=== PATIENT | male | born 1930 | race Caucasian/White ===

== ENCOUNTER 2017-12-12 23:06 | Observation (INO) ==
--- NOTE | 2017-12-12 23:35 | ED ---
HPI General Chief complaint: Weakness Stated complaint: weakness/evac Time Seen by Provider: 12/12/17 23:11 Source: patient and EMS Mode of arrival: EMS History of Present Illness HPI Narrative: Patient is an 87-year-old male with history of hyperlipidemia, macular degeneration, ataxia, weakness, atrial fibrillation, dm, CKD, htn who presents to the ER with complaints of dizziness. Patient reports that he was watching TV today and all of a sudden felt dizzy and his eyes. Patient reports that he is partially blind but "my eyes feel dizzy." Patient reports that he normally ambulates with a walker as he has history of ataxia, patient reports that he was unable to ambulate due to this dizziness. Patient reports that he tried to get to a phone but could not reach a phone. Patient reports that he crawled on the floor to get to the door and screamed for help as he lives in assisted living facility. Patient reports that in addition to his dizziness, he feels weak in his legs. Reports that he was not able to ambulate with assist after this incident. He does take coumadin for atrial fibrillation Related Data Allergies Allergy/AdvReac Type Severity Reaction Status Date / Time No Known Allergies Allergy Verified 12/12/17 23:15 Review of Systems Except as stated in HPI: all other systems reviewed are negative [facility] Medical History Medical History Glaucoma (Acute) Hyperlipidemia (Acute) Macular degeneration (Acute) Unsteady gait (Acute) Weakness (Acute) Afib (Acute) CKD (chronic kidney disease) (Acute) Diabetes (Acute) Hypertension (Acute) Surgical History Surgical History No history of previous surgery (Acute) Social History Social History Substance History: No History of Abuse Second Hand Smoke Exposure: No Smoking Status: Never smoker How Often Do You Have a Drink Containing Alcohol: 4 or more times a week Recent Travel in [facility] within the Last 8 Weeks: No Recent Out of Country Travel within the Last 8 Weeks: No Exam Narrative Exam Narrative: GENERAL: Mild distress SKIN: Focused skin assessment warm/dry. HEAD: Atraumatic. Normocephalic. EYES: No injection or drainage. ENT: No nasal bleeding or discharge. Mucous membranes pink and moist. NECK: Trachea midline. No JVD. CARDIOVASCULAR: Irregular rate and rhythm. No murmur appreciated. RESPIRATORY: No accessory muscle use. Clear to auscultation. Breath sounds equal bilaterally. GASTROINTESTINAL: Abdomen soft, non-tender, nondistended. Hepatic and splenic margins not palpable. MUSCULOSKELETAL: No obvious deformities. No clubbing. No cyanosis. +3 pedal edema b/l NEUROLOGICAL: Awake and alert. No obvious cranial nerve deficits. Motor grossly within normal limits. Normal speech. PSYCHIATRIC: Appropriate mood and affect; insight and judgment normal. Course Initial Documented Vital Signs Temperature 97.7 F 12/12/17 23:08 Pulse Rate 71 12/12/17 23:08 Respiratory Rate 18 12/12/17 23:08 Blood Pressure 140/75 12/12/17 23:08 Pulse Oximetry 96 12/12/17 23:08 Last Documented Vital Signs Temperature 97.7 F 12/12/17 23:08 Pulse Rate 75 12/13/17 00:05 Respiratory Rate 18 12/12/17 23:08 Blood Pressure 140/75 12/12/17 23:08 Pulse Oximetry 96 12/12/17 23:08 Medical Decision Making MDM Narrative Medical decision making narrative: During the course of the patients emergency department visit, the patients history, examination, and differential diagnosis were reviewed with the patient. The patient was placed on a security monitor with oximetry and frequent blood pressure monitoring. The patient had an IV access obtained and blood work sent for analysis. The patients laboratory studies were reviewed and remarkable for trop of 0.08, creatine is at baseline Patient will be admitted for NSTEMI and generalized weakness case reviewed with Dr. Lo who accepts pt to service Differential Diagnosis Differential Diagnosis: acs, arrythmia, uti, electrolyte abnormality, cva, tia, ich Lab Data Lab results reviewed: Yes I reviewed the patient's lab results. Result diagrams: 12/12/17 23:35 12/12/17 23:35 Lab Results 12/12/17 12/12/17 12/12/17 Range/Units 23:11 23:35 23:35 CBC w Diff Auto diff final WBC 8.5 (4.0-11.0) th/mm3 RBC 3.05 L (4.50-5.90) mil/mm3 Hgb 11.4 L (13.0-17.0) gm/dL Hct 32.4 L (39.0-51.0) % MCV 106.1 H (80.0-100.0) fL MCH 37.4 H (27.0-34.0) pg MCHC 35.3 (32.0-36.0) % RDW 14.0 (11.6-17.2) % Plt Count 109 L (150-450) th/mm3 MPV 7.4 (7.0-11.0) fL Neut % (Auto) 74.1 H (16.0-70.0) % Lymph % (Auto) 14.1 (9.0-44.0) % [place] % (Auto) 7.7 (0.0-8.0) % Eos % (Auto) 3.7 (0.0-4.0) % Baso % (Auto) 0.4 (0.0-2.0) % Neut # (Auto) 6.3 (1.8-7.7) th/mm3 Lymph # (Auto) 1.2 (1.0-4.8) th/mm3 [place] # (Auto) 0.7 (0.0-0.9) th/mm3 Eos # (Auto) 0.3 (0.0-0.4) th/mm3 Baso # (Auto) 0.0 (0.0-0.2) th/mm3 WBC Differential . Differential Comment . PT (9.8-11.6) sec INR Ratio APTT (24.3-30.1) sec Sodium 136 (136-145) meq/L Potassium 3.0 L (3.5-5.1) meq/L Chloride 101 (98-107) meq/L Carbon Dioxide 28.3 (21.0-32.0) meq/L Anion Gap 7 (5-15) meq/L BUN 52 H (7-18) mg/dL Creatinine 2.30 H (0.60-1.30) mg/dL Estimated GFR 27 L (>89) mL/min POC Glucose 127 H (68-110) mg/dl Random Glucose 133 H (74-106) mg/dL Calcium 8.9 (8.5-10.1) mg/dL Total Bilirubin 0.4 (0.2-1.0) mg/dL AST 7 L (15-37) U/L ALT 16 (12-78) U/L Alkaline Phosphatase 69 (45-117) U/L Total Creatine Kinase (39-308) U/L Troponin I (0.02-0.05) ng/mL Total Protein 7.7 (6.4-8.2) g/dL Albumin 3.3 L (3.4-5.0) g/dL Urine Color (Yellw/Straw) Urine Clarity (Clear) Urine pH (5.0-8.5) Ur Specific [place] (1.002-1.035) Urine Protein (Neg-Trace) mg/dL Urine Glucose (UA) (Negative) mg/dL Urine Ketones (Negative) mg/dL Urine Occult Blood (Negative) Urine Nitrate (Negative) Urine Bilirubin (Negative) Urine Urobilinogen (Less than 2) mg/dL Ur Leukocyte Esterase (Negative) Urine WBC (0-5) /hpf Urine WBC Clumps (None) Ur Squamous Epith Cells (0-5) /hpf Micro UA Comment Urine Culture Comments 12/12/17 12/12/17 12/12/17 Range/Units 23:35 23:35 23:55 CBC w Diff WBC (4.0-11.0) th/mm3 RBC (4.50-5.90) mil/mm3 Hgb (13.0-17.0) gm/dL Hct (39.0-51.0) % MCV (80.0-100.0) fL MCH (27.0-34.0) pg MCHC (32.0-36.0) % RDW (11.6-17.2) % Plt Count (150-450) th/mm3 MPV (7.0-11.0) fL Neut % (Auto) (16.0-70.0) % Lymph % (Auto) (9.0-44.0) % [place] % (Auto) (0.0-8.0) % Eos % (Auto) (0.0-4.0) % Baso % (Auto) (0.0-2.0) % Neut # (Auto) (1.8-7.7) th/mm3 Lymph # (Auto) (1.0-4.8) th/mm3 [place] # (Auto) (0.0-0.9) th/mm3 Eos # (Auto) (0.0-0.4) th/mm3 Baso # (Auto) (0.0-0.2) th/mm3 WBC Differential Differential Comment PT 22.2 H (9.8-11.6) sec INR 2.2 Ratio APTT 37.8 H (24.3-30.1) sec Sodium (136-145) meq/L Potassium (3.5-5.1) meq/L Chloride (98-107) meq/L Carbon Dioxide (21.0-32.0) meq/L Anion Gap (5-15) meq/L BUN (7-18) mg/dL Creatinine (0.60-1.30) mg/dL Estimated GFR (>89) mL/min POC Glucose (68-110) mg/dl Random Glucose (74-106) mg/dL Calcium (8.5-10.1) mg/dL Total Bilirubin (0.2-1.0) mg/dL AST (15-37) U/L ALT (12-78) U/L Alkaline Phosphatase (45-117) U/L Total Creatine Kinase 69 (39-308) U/L Troponin I 0.08 H (0.02-0.05) ng/mL Total Protein (6.4-8.2) g/dL Albumin (3.4-5.0) g/dL Urine Color Yellow (Yellw/Straw) Urine Clarity Clear (Clear) Urine pH 5.5 (5.0-8.5) Ur Specific [place] 1.010 (1.002-1.035) Urine Protein Negative (Neg-Trace) mg/dL Urine Glucose (UA) Negative (Negative) mg/dL Urine Ketones Negative (Negative) mg/dL Urine Occult Blood Negative (Negative) Urine Nitrate Negative (Negative) Urine Bilirubin Negative (Negative) Urine Urobilinogen 0.2 (Less than 2) mg/dL Ur Leukocyte Esterase Trace H (Negative) Urine WBC 5-8 H (0-5) /hpf Urine WBC Clumps Few H (None) Ur Squamous Epith Cells 0-5 (0-5) /hpf Micro UA Comment Culture indicated Urine Culture Comments Culture indicated Imaging Data Attestation: I personally reviewed and interpreted this imaging study as follows : Radiologist's impression: Head CT 12/12/17 23:11 CONCLUSION: 1. No acute findings in the brain. Age-appropriate atrophy. Chest X-Ray 12/12/17 23:12 CONCLUSION: Subsegmental basilar airspace disease. No effusion or pneumothorax. ECG Data EKG Prior to Arrival: No Attestation: I personally reviewed and interpreted this ECG as follows: Interpretation: afib at 60bpm, qt/qtc: 407/407 Discharge Plan Discharge Disposition Patient Disposition: 30 Still Patient Physicians Team ED Provider: Niesha Chaves Primary Care Provider: Edwin Scott Status ED Status: With Doctor
--- NOTE | 2017-12-12 23:42 | CT ---
EXAM DATE: 12/12/2017 11:38 PM EDT AGE/SEX: 87 years / Male INDICATIONS: Weakness. Unsteady gait. CLINICAL DATA: This is the patient's initial encounter. Patient reports that signs and symptoms have been present for 1 day and indicates a pain score of 0/10. MEDICAL/SURGICAL HISTORY: Diabetes. Hypertension. None. RADIATION DOSE: 59.45 CTDI (mGy) COMPARISON: No prior exams available for comparison. TECHNIQUE: CT of the head without contrast. Using automated exposure control and adjustment of the mA and/or kV according to patient size, radiation dose was kept as low as reasonably achievable to ob tain optimal diagnostic quality images. DICOM format image data is available electronically for revi ew and comparison. FINDINGS: Cerebrum: The ventricles, sulci, and basal cisterns are mildly prominent, characteristic of age-appr opriate atrophy.. No evidence of midline shift, mass lesion, hemorrhage or acute infarction. No ext raaxial fluid collections are seen. Posterior Fossa: The cerebellum and brainstem are intact. The 4th ventricle is midline. The cerebe llopontine angle is unremarkable. Extracranial: The visualized portion of the orbits is intact. Skull: The calvaria is intact. No evidence of skull fracture. CONCLUSION: 1. No acute findings in the brain. Age-appropriate atrophy. Electronically signed by: Jonathan Arrieta MD 12/12/2017 11:40 PM EDT
[2017-12-12 23:49] LABS: Baso % (Auto) 0.4 % (0.0-2.0); Eos # (Auto) 0.3 th/mm3 (0.0-0.4); Eos % (Auto) 3.7 % (0.0-4.0); Hematocrit 32.4 % (39.0-51.0); Hemoglobin 11.4 gm/dL (13.0-17.0); Lymph # (Auto) 1.2 th/mm3 (1.0-4.8); Lymph % (Auto) 14.1 % (9.0-44.0); Mean Corpuscular HGB Conc 35.3 % (32.0-36.0); Mean Corpuscular Hemoglobin 37.4 pg (27.0-34.0); Mean Corpuscular Volume 106.1 fL (80.0-100.0); Mean Platelet Volume 7.4 fL (7.0-11.0); Mono # (Auto) 0.7 th/mm3 (0.0-0.9); Mono % (Auto) 7.7 % (0.0-8.0); Neut # (Auto) 6.3 th/mm3 (1.8-7.7); Neut % (Auto) 74.1 % (16.0-70.0); Platelet Count 109 th/mm3 (150-450); Red Blood Count 3.05 mil/mm3 (4.50-5.90); White Blood Count 8.5 th/mm3 (4.0-11.0)
[2017-12-13 00:03] LABS: Bilirubin,Urine Negative (Negative); Clarity,Urine Clear (Clear); Color,Urine Yellow (Yellw/Straw); Glucose,Urine (UA) Negative (Negative); Leukocyte Esterase,Urine Trace (Negative); Nitrite,Urine Negative (Negative); PH,Urine 5.5 (5.0-8.5); Urobilinogen,Urine 0.2 mg/dL (Less than 2)
--- NOTE | 2017-12-13 00:08 | XR ---
EXAM DATE: 12/12/2017 11:46 PM EDT AGE/SEX: 87 years / Male INDICATIONS: . Shortness of breath. CLINICAL DATA: This is the patient's initial encounter. Patient reports that signs and symptoms have been present for 1 day and indicates a pain score of 0/10. MEDICAL/SURGICAL HISTORY: . Diabetes. Hypertension. None. COMPARISON: . FINDINGS: Heart size is enlarged. Subsegmental basilar airspace disease. No significant effusion. Tortuous aort a. No pneumothorax. CONCLUSION: Subsegmental basilar airspace disease. No effusion or pneumothorax. Electronically signed by: Bryce Sibley MD 12/13/2017 12:06 AM EDT
[2017-12-13 00:10] LABS: Chloride 101 meq/L (98-107); Sodium 136 meq/L (136-145)
[2017-12-13 00:13] LABS: Squamous Epithelial Cell,Urine 0-5 /hpf (0-5)
[2017-12-13 00:13] LABS: Calcium 8.9 mg/dL (8.5-10.1)
[2017-12-13 00:14] LABS: Albumin 3.3 g/dL (3.4-5.0); Anion Gap 7 meq/L (5-15); Blood Urea Nitrogen 52 mg/dL (7-18); Carbon Dioxide 28.3 meq/L (21.0-32.0); Glucose,Random 133 mg/dL (74-106)
[2017-12-13 00:17] LABS: Alanine Aminotransferase 16 U/L (12-78); Aspartate Aminotransferase 7 U/L (15-37); Glomerular Filtration Rate 27 mL/min (>89)
[2017-12-13 00:19] LABS: Total Protein 7.7 g/dL (6.4-8.2)
[2017-12-13 00:20] LABS: Alkaline Phosphatase 69 U/L (45-117); Troponin I 0.08 ng/mL (0.02-0.05)
[2017-12-13 01:03] LABS: Activated Partial Thrombo Time 37.8 sec (24.3-30.1); INR 2.2 Ratio; Prothrombin Time 22.2 sec (9.8-11.6)
[2017-12-13] MEDS ORDERED: Temazepam 15 MG Capsule PO PRN (01:43)
[2017-12-13] MEDS ORDERED: Dextrose 50% in Water 50 ML Vial IV.PUSH PRN (01:46)
[2017-12-13] MEDS: Heparin - SQ 10,000 UNITS/ML Vial SQ SCH ×3 (02:48→16:59)
[2017-12-13] MEDS ORDERED: Ranolazine 500 MG 12HR ER Tablet PO SCH (03:45)
[2017-12-13] MEDS: Isosorbide Mononitrate 60 MG ER 24HR Tablet (Imdur) PO SCH (06:51)
[2017-12-13 08:28] LABS: Potassium 3.4 meq/L (3.5-5.1)
[2017-12-13 08:30] LABS: Calcium 8.6 mg/dL (8.5-10.1)
[2017-12-13 08:31] LABS: Carbon Dioxide 30.2 meq/L (21.0-32.0)
[2017-12-13] MEDS: hydroCHLOROthiazide 25 MG Tablet PO SCH (09:27)
[2017-12-13] MEDS: Ranolazine 500 MG 12HR ER Tablet PO SCH ×2 (09:28→21:17)
[2017-12-13] MEDS: Furosemide 40 MG Tablet PO SCH (09:28)
[2017-12-13] MEDS: Metoprolol Tartrate 25 MG Tablet PO SCH ×2 (09:29→21:17)
[2017-12-13] MEDS: Lisinopril 10 MG Tablet PO SCH ×2 (09:29→21:17)
[2017-12-13] MEDS: Finasteride 5 MG Tablet PO SCH (09:29)
[2017-12-13] MEDS: Allopurinol 100 MG Tablet PO SCH (09:29)
[2017-12-13] MEDS: Insulin NovoLOG Aspart Correctional Sugar Inj SQ SCH ×4 (09:35→21:18)
[2017-12-13] MEDS: Brimonidine 0.15% Opth Drops 5 ML Bottle EACH EYE SCH ×3 (10:41→17:00)
--- NOTE | 2017-12-13 10:41 | MR ---
EXAM DATE: 12/13/2017 10:01 AM EDT AGE/SEX: 87 years / Male INDICATIONS: Dizziness. Weakness in bilateral extremities. CLINICAL DATA: This is the patient's initial encounter. Patient reports that signs and symptoms have been present for 1 day and indicates a pain score of 0/10. MEDICAL/SURGICAL HISTORY: Hypertension. None. COMPARISON: [facility], CT HEAD W/O CONTRAST, 12/12/2017. . TECHNIQUE: Multiplanar, multisequence examination of the brain was performed without contrast. FINDINGS: The CSF spaces are enlarged indicating mild atrophy and age-related volume loss. Scattered T2 hyperintense changes are seen throughout the cerebral white matter predominantly in the periventricular and deep white matter tracts. Focal areas of macrocystic degeneration are identified in several of these hyperintense lesions. There is no evidence of restricted diffusion involving the cerebral cortex or white matter. Brainstem and cerebellum are unremarkable. There is no evidence of mass effect or edema. CONCLUSION: 1. 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 2. Generalized volume loss consistent with an aging brain atrophy. 3. No evidence of acute infarct, hemorrhage, mass or edema. Electronically signed by: Chadd Gan MD 12/13/2017 10:40 AM EDT
[2017-12-13 12:46] LABS: Chol/HDL Ratio 2.33 Ratio; HDL Cholesterol 48.3 mg/dL (40.0-60.0)
--- NOTE | 2017-12-13 14:10 | P.HP ---
History of Present Illness Primary Care Physician: Edwin Scott MD History of Present Illness: 87-year-old male with history of A. fib, DVT presents to the ER following an acute onset of dizziness and weakness. He lives in an [place] where, at 10:45 PM last night, he became acutely weak and dizzy and had to crawl on his hands and knees to the door which he opened and called for help. He denies any chest pain. He is uncertain why he felt this way. Currently he says he feels better but has not tested himself on his feet again. He denies any dizziness lying in bed. His history is somewhat broken, he cannot remember if he has atrial fibrillation though it is in his history. This may indicate some level of dementia. Review of Systems Constitutional: Reports fatigue, Reports weakness, Denies anorexia, Denies chills, Denies daytime sleepiness, Denies malaise, Denies night sweats, Denies weight gain, Denies weight loss Eyes: Denies blind spots, Denies blurry vision, Denies change in vision, Denies double vision, Denies discharge Ears, Nose, Mouth, and Throat: Reports dizziness, Denies change in voice, Denies hearing loss, Denies nosebleed, Denies nasal discharge Cardiovascular: Denies chest pain, Denies fainting, Denies fast heart rate, Denies generalized swelling, Denies irregular heart rhythm Respiratory: Denies change in phlegm color, Denies chest congestion, Denies cough, Denies pain on inspiration Gastrointestinal: Denies abdominal pain, Denies black, tarry stools, Denies bloating, Denies bright, red blood in stools, Denies change in bowel habits Musculoskeletal: Denies abnormal walking, Denies back pain, Denies body aches Neurologic: Reports dizziness, Reports unsteadiness, Reports weakness, Denies abnormal hearing, Denies abnormal movements, Denies abnormal speech, Denies abnormal walking, Denies behavioral changes, Denies fainting, Denies frequent falls, Denies headache(s), Denies localized weakness, Denies numbness Psychiatric: Reports memory loss PMFSH - History History Provided By: Patient - Medical History Medical History: Medical History (Last Reviewed 12/13/17 @ 09:42 by Niesha Barrett) Glaucoma Hyperlipidemia Macular degeneration Unsteady gait Weakness Afib CKD (chronic kidney disease) Diabetes Hypertension - Surgical History Surgical History: Surgical History (Last Updated 12/13/17 @ 00:08 by Vida Bella RN) No history of previous surgery - Tobacco History Second Hand Smoke Exposure: No Smoking Status: Never smoker - Alcohol History How Often Do You Have a Drink Containing Alcohol: 4 or more times a week - Substance Use History Substance History: No History of Abuse - Travel History Recent Travel in the [place] Within the Last 8 Weeks: No Recent Travel Out of the Country Within the Last 8 Weeks: No - Immunization History Tetanus Immunization: >5 Years Hx Influenza Vaccine This Season: Yes Medications and Allergies Active Medications: Active Medications Allopurinol (Zyloprim) 300 mg PO DAILY [facility] Last Admin: 12/13/17 09:29 Dose: 300 mg Aspirin (Aspirin Chew) 81 mg PO DAILY [facility] Last Admin: 12/13/17 09:29 Dose: 81 mg Brimonidine Tartrate (Alphagan P 0.15% Opth Drops) 1 drops EACH EYE TID [facility] Last Admin: 12/13/17 10:41 Dose: Not Given Dextrose (D50w Vial) 50 ml IV.PUSH UNSCH PRN PRN Reason: PER HYPOGLYCEMIA PROTOCOL Finasteride (Proscar) 5 mg PO DAILY [facility] Last Admin: 12/13/17 09:29 Dose: 5 mg Furosemide (Lasix) 40 mg PO DAILY [facility] Last Admin: 12/13/17 09:28 Dose: 40 mg Glucagon (Glucagon Inj) 1 mg OTHER PRN PRN PRN Reason: for Hypoglycemia Protocol Heparin Sodium (Porcine) (Heparin Inj) 5,000 units SQ Q8H [facility] Last Admin: 12/13/17 11:29 Dose: Not Given Hydrochlorothiazide (Hydrodiuril) 25 mg PO DAILY [facility] Last Admin: 12/13/17 09:27 Dose: 25 mg Ceftriaxone Sodium 1,000 mg/ (Sodium Chloride) 100 mls @ 200 mls/hr IV.SIG Q24H [facility] Insulin Aspart (Novolog Insulin Correctional Sugar Inj) 0 unit SQ ACHS [facility]; Protocol Last Admin: 12/13/17 11:26 Dose: Not Given Isosorbide Mononitrate (Imdur) 120 mg PO DAILY@0700 [facility] Last Admin: 12/13/17 06:51 Dose: 120 mg Lisinopril (Prinivil) 10 mg PO BID [facility] Last Admin: 07/19/18 09:29 Dose: 10 mg Metoprolol Tartrate (Lopressor) 75 mg PO BID [facility] Last Admin: 12/13/17 09:29 Dose: 75 mg Ondansetron HCl (Zofran Inj) 4 mg IV.PUSH Q6H PRN PRN Reason: NAUSEA OR VOMITING Potassium Chloride (K-Dur) 40 meq PO BID [facility] Last Admin: 12/13/17 09:28 Dose: 40 meq Pravastatin Sodium (Pravachol) 80 mg PO QPM [facility] Ranolazine (Ranexa) 500 mg PO BID [facility] Last Admin: 12/13/17 09:28 Dose: 500 mg Sodium Chloride (Ns Flush) 2 ml IV.FLUSH PRN PRN PRN Reason: FLUSH AFTER USING IV ACCESS Tamsulosin HCl (Flomax) 0.8 mg PO DAILY [facility] Last Admin: 12/13/17 09:28 Dose: 0.8 mg Temazepam (Restoril) 15 mg PO HS PRN PRN Reason: INSOMNIA Warfarin Sodium (Coumadin) 2 mg PO Mo@1600 [facility] Warfarin Sodium (Coumadin) 1 mg PO SuTuWe@1600 [facility] Warfarin Sodium (Coumadin) 1 mg PO ThFrSa@1600 [facility] Allergies Allergy/AdvReac Type Severity Reaction Status Date / Time No Known Allergies Allergy Verified 12/12/17 23:15 Home Medications Medication Instructions Recorded Confirmed Type allopurinol 300 mg PO DAILY 12/13/17 12/13/17 History aspirin 81 mg PO DAILY 12/13/17 12/13/17 History brimonidine [Alphagan P] 1 drp OPHTHALMIC (EYE) TID 12/13/17 12/13/17 History docusate sodium [Colace] 100 mg PO BID 12/13/17 12/13/17 History dorzolamide-timolol [Cosopt] 1 drp OPHTHALMIC (EYE) Q12H 12/13/17 12/13/17 History finasteride 5 mg PO DAILY 12/13/17 12/13/17 History furosemide [Lasix] 40 mg PO DAILY 12/13/17 12/13/17 History hydrochlorothiazide 25 mg PO QAM 12/13/17 12/13/17 History isosorbide mononitrate 120 mg PO DAILY 12/13/17 12/13/17 History lisinopril 10 mg PO BID 12/13/17 12/13/17 History metoprolol tartrate 75 mg PO BID 12/13/17 12/13/17 History potassium chloride 40 meq PO BID 12/13/17 12/13/17 History ranolazine [Ranexa] 500 mg PO Q12H 12/13/17 12/13/17 History simvastatin 40 mg PO QPM 12/13/17 12/13/17 History tamsulosin 0.8 mg PO DAILY 12/13/17 12/13/17 History warfarin See Label Instructions .ROUTE 12/13/17 12/13/17 History .COMPLEX Exam Vital signs: Vital Signs 12/12/17 23:08 12/13/17 00:05 12/13/17 02:56 Temperature 97.7 F Pulse Rate 71 75 79 Respiratory Rate 18 18 Blood Pressure 140/75 138/65 Pulse Oximetry 96 95 12/13/17 02:57 12/13/17 03:14 12/13/17 06:44 Temperature 97.8 F Pulse Rate 74 Respiratory Rate 18 Blood Pressure 164/81 H Pulse Oximetry 95 98 96 12/13/17 08:29 12/13/17 11:00 Temperature 97.2 F L 96.5 F L Pulse Rate 77 71 Respiratory Rate 20 20 Blood Pressure 175/91 H 135/83 Pulse Oximetry 99 95 Intake & Output 12/12/17 12/13/17 12/13/17 18:59 06:59 18:59 Intake Total 100 / 100 Output Total 400 / 400 Balance -300 / -300 Weight 85.5 kg Intake: IV 100 / 100 Rocephin Inj 1,000 MG In NS Inj 100 / 100 100 ML @ 200 mls/hr IV.SIG ONCE ONE Rx#:[id number] Output: Urine 400 / 400 Narrative: GENERAL: Calm, well-nourished SKIN: Warm and dry. HEAD: Atraumatic. Normocephalic. EYES: Pupils equal and round. No scleral icterus. No injection or drainage. ENT: No nasal bleeding or discharge. Mucous membranes pink and moist. NECK: Trachea midline. No JVD. CARDIOVASCULAR: Irregularly irregular, rate controlled, no murmurs RESPIRATORY: No accessory muscle use. Clear to auscultation. Breath sounds equal bilaterally. GASTROINTESTINAL: Abdomen soft, non-tender, nondistended. Hepatic and splenic margins not palpable. MUSCULOSKELETAL: Extremities without clubbing, cyanosis, or edema. No obvious deformities. Negative Homans sign NEUROLOGICAL: Awake and alert. No obvious cranial nerve deficits. Motor grossly within normal limits. Five out of 5 muscle strength in the arms and legs. Normal speech. PSYCHIATRIC: Appropriate mood and affect; insight and judgment normal. Results - Labs CBC & Chem 7: 12/12/17 23:35 12/13/17 08:10 Labs: Laboratory Results - last 24 hr 12/12/17 12/12/17 12/12/17 23:11 23:35 23:35 CBC w Diff Auto diff final WBC 8.5 RBC 3.05 L Hgb 11.4 L Hct 32.4 L MCV 106.1 H MCH 37.4 H MCHC 35.3 RDW 14.0 Plt Count 109 L MPV 7.4 Neut % (Auto) 74.1 H Lymph % (Auto) 14.1 Orange % (Auto) 7.7 Eos % (Auto) 3.7 Baso % (Auto) 0.4 Neut # (Auto) 6.3 Lymph # (Auto) 1.2 Orange # (Auto) 0.7 Eos # (Auto) 0.3 Baso # (Auto) 0.0 WBC Differential . Differential Comment . PT INR APTT Sodium 136 Potassium 3.0 L Chloride 101 Carbon Dioxide 28.3 Anion Gap 7 BUN 52 H Creatinine 2.30 H Estimated GFR 27 L POC Glucose 127 H Random Glucose 133 H Calcium 8.9 Total Bilirubin 0.4 AST 7 L ALT 16 Alkaline Phosphatase 69 Total Creatine Kinase Troponin I Total Protein 7.7 Albumin 3.3 L Triglycerides Cholesterol LDL Cholesterol, Calc HDL Cholesterol Cholesterol/HDL Ratio Urine Color Urine Clarity Urine pH Ur Specific [place] Urine Protein Urine Glucose (UA) Urine Ketones Urine Occult Blood Urine Nitrate Urine Bilirubin Urine Urobilinogen Ur Leukocyte Esterase Urine WBC Urine WBC Clumps Ur Squamous Epith Cells Micro UA Comment Urine Culture Comments 12/12/17 12/12/17 12/12/17 23:35 23:35 23:55 CBC w Diff WBC RBC Hgb Hct MCV MCH MCHC RDW Plt Count MPV Neut % (Auto) Lymph % (Auto) Orange % (Auto) Eos % (Auto) Baso % (Auto) Neut # (Auto) Lymph # (Auto) Orange # (Auto) Eos # (Auto) Baso # (Auto) WBC Differential Differential Comment PT 22.2 H INR 2.2 APTT 37.8 H Sodium Potassium Chloride Carbon Dioxide Anion Gap BUN Creatinine Estimated GFR POC Glucose Random Glucose Calcium Total Bilirubin AST ALT Alkaline Phosphatase Total Creatine Kinase 69 Troponin I 0.08 H Total Protein Albumin Triglycerides Cholesterol LDL Cholesterol, Calc HDL Cholesterol Cholesterol/HDL Ratio Urine Color Yellow Urine Clarity Clear Urine pH 5.5 Ur Specific [place] 1.010 Urine Protein Negative Urine Glucose (UA) Negative Urine Ketones Negative Urine Occult Blood Negative Urine Nitrate Negative Urine Bilirubin Negative Urine Urobilinogen 0.2 Ur Leukocyte Esterase Trace H Urine WBC 5-8 H Urine WBC Clumps Few H Ur Squamous Epith Cells 0-5 Micro UA Comment Culture indicated Urine Culture Comments Culture indicated 12/13/17 12/13/17 12/13/17 08:10 08:10 08:10 CBC w Diff WBC RBC Hgb Hct MCV MCH MCHC RDW Plt Count MPV Neut % (Auto) Lymph % (Auto) Orange % (Auto) Eos % (Auto) Baso % (Auto) Neut # (Auto) Lymph # (Auto) Orange # (Auto) Eos # (Auto) Baso # (Auto) WBC Differential Differential Comment PT INR APTT Sodium 137 Potassium 3.4 L Chloride 103 Carbon Dioxide 30.2 Anion Gap 4 L BUN 49 H Creatinine 2.10 H Estimated GFR 30 L POC Glucose Random Glucose 141 H Calcium 8.6 Total Bilirubin AST ALT Alkaline Phosphatase Total Creatine Kinase 61 Troponin I 0.09 H Total Protein Albumin Triglycerides Cholesterol LDL Cholesterol, Calc HDL Cholesterol Cholesterol/HDL Ratio Urine Color Urine Clarity Urine pH Ur Specific [place] Urine Protein Urine Glucose (UA) Urine Ketones Urine Occult Blood Urine Nitrate Urine Bilirubin Urine Urobilinogen Ur Leukocyte Esterase Urine WBC Urine WBC Clumps Ur Squamous Epith Cells Micro UA Comment Urine Culture Comments 12/13/17 12/13/17 12/13/17 08:10 09:20 11:19 CBC w Diff WBC RBC Hgb Hct MCV MCH MCHC RDW Plt Count MPV Neut % (Auto) Lymph % (Auto) Orange % (Auto) Eos % (Auto) Baso % (Auto) Neut # (Auto) Lymph # (Auto) Orange # (Auto) Eos # (Auto) Baso # (Auto) WBC Differential Differential Comment PT INR APTT Sodium Potassium Chloride Carbon Dioxide Anion Gap BUN Creatinine Estimated GFR POC Glucose 123 H 111 H Random Glucose Calcium Total Bilirubin AST ALT Alkaline Phosphatase Total Creatine Kinase Troponin I Total Protein Albumin Triglycerides 106 Cholesterol 113 L LDL Cholesterol, Calc 44 HDL Cholesterol 48.3 Cholesterol/HDL Ratio 2.33 Urine Color Urine Clarity Urine pH Ur Specific [place] Urine Protein Urine Glucose (UA) Urine Ketones Urine Occult Blood Urine Nitrate Urine Bilirubin Urine Urobilinogen Ur Leukocyte Esterase Urine WBC Urine WBC Clumps Ur Squamous Epith Cells Micro UA Comment Urine Culture Comments - Imaging Impressions Head CT 12/12/17 23:11 CONCLUSION: 1. No acute findings in the brain. Age-appropriate atrophy. Chest X-Ray 12/12/17 23:12 CONCLUSION: Subsegmental basilar airspace disease. No effusion or pneumothorax. Head MRI 12/13/17 00:00 CONCLUSION: 1. [id number] chronic ischemic white matter disease and small focal areas of deep white matter infarction. 2. Generalized volume loss consistent with an aging brain atrophy. 3. No evidence of acute infarct, hemorrhage, mass or edema. Caprini VTE Risk Assessment Caprini VTE Risk Assessment: Moderate/High Risk (score >= 2) Caprini Risk Assessment Model: Point Value = 1 Point Value = 2 Point Value = 3 Point Value = 5 Age 41-60 Minor surgery BMI > 25 kg/m2 Swollen legs Varicose veins or History of unexplained or recurrent spontaneous Oral contraceptives or hormone replacement Sepsis (< 1 month) Serious lung disease, including pneumonia (< 1 month) Abnormal pulmonary function Acute myocardial infarction Congestive heart failure (< 1 month) History of inflammatory bowel disease Medical patient at bed rest Age 61-74 Arthroscopic surgery Major open surgery (> 45 min) Laparoscopic surgery (> 45 min) Malignancy Confined to bed (> 72 hours) Immobilizing plaster cast Central venous access Age >= 75 History of VTE Family history of VTE Factor V Leiden Prothrombin [id number] Lupus anticoagulant Anticardiolipin antibodies Elevated serum homocysteine Heparin-induced thrombocytopenia Other congenital or acquired thrombophilia Stroke (< 1 month) Elective arthroplasty Hip, pelvis, or leg fracture Acute spinal cord injury (< 1 month) Prophylaxis Regimen: Total Risk Factor Score Risk Level Prophylaxis Regimen 0-1 Low Early ambulation 2 Moderate Order ONE of the following: *Sequential Compression Device (SCD) *Heparin 5000 units SQ BID 3-4 Higher Order ONE of the following medications: *Heparin 5000 units SQ TID *Enoxaparin/Lovenox 40 mg SQ daily (WT < 150 kg, CrCl > 30 mL/min) *Enoxaparin/Lovenox 30 mg SQ daily (WT < 150 kg, CrCl > 10-29 mL/min) *Enoxaparin/Lovenox 30 mg SQ BID (WT < 150 kg, CrCl > 30 mL/min) AND/OR *Sequential Compression Device (SCD) 5 or more Highest Order ONE of the following medications: *Heparin 5000 units SQ TID (Preferred with Epidurals) *Enoxaparin/Lovenox 40 mg SQ daily (WT < 150 kg, CrCl > 30 mL/min) *Enoxaparin/Lovenox 30 mg SQ daily (WT < 150 kg, CrCl > 10-29 mL/min) *Enoxaparin/Lovenox 30 mg SQ BID (WT < 150 kg, CrCl > 30 mL/min) AND *Sequential Compression Device (SCD) Assessment and Plan - Plan Generalized weakness, acute onset CT & MRI of brain are both negative for any acute changes No focal findings on exam, speech is normal Not presenting as a stroke Electrolytes are acceptable Will check TSH in the a.m. Atrial fibrillation Chronic diagnosis, managed by Dr. 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
--- NOTE | 2017-12-13 18:59 | ECG ---
Date Performed: 12/12/2017 Time Performed: 23:14:12 PTAGE: 87 years EKG: CONTROLLED VENTRICULAR RATE RIGHT BUNDLE BRANCH BLOCK VENTRICULAR PREMATURE COMPLEXES LOW L IMB LEAD VOLTAGE PREVIOUS TRACING : 01/31/2014 00.04 Since the previous tracing, no significant change not ed DOCTOR: Gonzalo Jimenez Interpretating Date/Time 12/13/2017 18:57:57
--- NOTE | 2017-12-13 21:32 | MB ---
cc: Sheila Pierce MD, Ashraf S MD White, R Steven MD DATE: 12/13/2017 HISTORY OF PRESENT ILLNESS: Mr. Coyle is a pleasant 87-year-old gentleman with well known to me with history of coronary artery disease, has an occluded RCA with left to right collaterals as per his latest cardiac catheterization from 12/2014. He has mild to moderate left coronary system disease. He comes in because of weakness and possibly "the room was spinning" .He crawled on the floor and hollered for the nurse who came to him (lives in an assisted living facility). He did not have complete loss of consciousness. He apparently checked his vitals and he indicated that they were not of any significant abnormalities and then they called [facility] who brought into the hospital and his potassium was 3.0. He also had mild increase in his WBCs in the urine and they have been treating for UTI. Denies chest pain. Denies palpitations, prior dizziness or syncope. Denies orthopnea or PND. He has chronic mild lower extremity edema, which has not changed. Part of the lab workup including a troponin that showed nonspecific mild elevation at 0.08 to 0.1, but he also had an underlying renal insufficiency with a creatinine of 2.3/2.1 with an GFR of 27-30. ALLERGIES: NO KNOWN DRUG ALLERGIES. PAST MEDICAL AND SURGICAL HISTORY: Includes as mentioned above. 1. History of chronic atrial fibrillation, rate controlled, on Coumadin for anticoagulation. 2. Lower extremity edema. 3. History of diastolic heart failure, stable on current regimen. 4. Chronic obstructive pulmonary disease. 5. Mild ischemic cardiomyopathy with an ejection fraction now around 45-50%. 6. Hyperlipidemia. 7. Benign prostatic hypertrophy. 8. Gout. SOCIAL HISTORY: Never smoked. He drinks about 1 vodka and tonic daily. Walks daily for about 15 minutes with no chest pain. Denies recreational drug abuse and he lives in assisted living facility. FAMILY HISTORY: Positive for coronary artery disease and hypertension. MEDICATIONS AT HOME: 1. Allopurinol 300 mg p.o. daily, 2. Ecotrin 81 mg p.o. daily. 3. Multivitamins. 4. Lasix 40 mg p.o. daily. 5. Hydrochlorothiazide 25 mg p.o. daily, 6. Imdur 120 mg p.o. daily. 7. Lisinopril 10 mg p.o. b.i.d. 8. Metoprolol tartrate 75 mg p.o. b.i.d. 9. Nitroglycerin 0.4 mg sublingual p.r.n. for chest pain. 10. KCl 40 mEq p.o. b.i.d. 11. He also according to his admission list is supposed to be on Proscar 5 mg p.o. daily. and 0.8 mg p.o. at bedtime. However, those were not on my office record medications. 12. PreserVision once daily. 13. Ranexa 500 mg p.o. b.i.d. 14. Simvastatin 40 mg p.o. at bedtime. 15. Coumadin 1 mg p.o. daily except Sunday, 2 mg. He came with therapeutic INR of 2.2. REVIEW OF SYSTEMS: A 12-point system review was unremarkable except what is mentioned in the history of present illness. PHYSICAL EXAMINATION: VITAL SIGNS: Shows a blood pressure is 147/75 mmHg, pulse of 76 beats per minute, irregularly irregular, respiration 14 per minute, afebrile. HEENT: Head is normocephalic. Pupils are equal and reactive. Throat is within normal limits. NECK: Supple. No carotid bruit. No thyromegaly. No jugular venous distention noted. LUNGS: Clear to auscultation and percussion. HEART: S1, S2 are variable in intensity with an S4 gallop and 1-2/6 systolic murmur across the precordium, not changed. ABDOMEN: Lax, nontender. Normoactive bowel sounds. No organomegaly, no masses felt. EXTREMITIES: No clubbing or cyanosis. He has 1 to 2+ pitting edema of the lower ankles bilaterally, which has not changed from before. Varicose vein was noted more on the left that is unchanged. Pulses 2+ bilaterally diminished distal pulses. NEUROLOGIC: Grossly intact with no focal deficits. RECTAL: Deferred. CARDIOLOGY STUDIES: EKG shows atrial fibrillation with right bundle branch block and left anterior hemiblock and diffuse nonspecific ST-T wave changes, not significantly changed compared to his prior tracing. LABORATORY DATA: Shows a potassium when he came of 3.0 and repeat is 3.4. Troponin I is 0.08, 0.09 and 0.1. Lipids shows an LDL of 44, HDL of 48, and triglycerides of 106. BUN of 52, creatinine is 2.3 with a sodium of 136. INR was 2.2. CBC shows a white count of 8.5, hemoglobin of 11.4, and a platelet count of 109. Urinalysis shows WBCS of 5-8 with few clumps and culture is pending. IMAGING STUDIES: He had a head CT and MRI that showed no acute findings, chronic changes. Chest x-ray was reported as subsegmental basal air space disease, but no effusion or pneumothorax or any other pathology. ASSESSMENT AND RECOMMENDATIONS: 1. Nonspecific troponin elevation/history of coronary artery disease on top of renal insufficiency. He denies any angina. His troponin elevation can be related to his kidney insufficiency. He has a stress tests set up as an outpatient and currently on Coumadin. I do not see the need for any further invasive workup at the present time. We will keep the workup as an outpatient as is. He has no new electrocardiogram changes and would continue on his current regimen. 2. Chronic atrial fibrillation. 3. Controlled ventricular response rate on beta blockers and he is on anticoagulation with Coumadin. Apparently subcutaneous heparin was added to his regimen and this will be discontinued as he is on Coumadin with a therapeutic INR. 4. Mild ischemic cardiomyopathy, stable. 5. Hyperlipidemia, continue statins. 4. Weakness and hypokalemia. This may be related to medications and also the hyperkalemia, his current presentation. On telemetry does not show any significant tachy or bradyarrhythmia to explain his symptoms. His blood pressure is relatively controlled and no episodes of hypotension. He is, however, on alpha blocking agents (tamsulosin and Proscar) and we will check with his assisted living facility nurses whether he was given his medications accurately and when the Proscar and tamsulosin got started, as it might be contributing to his weakness upon arrival. I had the his nurse to call the assisted living facility and check on those issues. 5. Urinary tract infection, followup with the medical team therapy. As far as I am concerned, he can be discharged and will followup as an outpatient. I thank you for the consultation. MD JOANN Lopez/ , 08:55 PM , 09:30 PM
[2017-12-14] MEDS: Isosorbide Mononitrate 60 MG ER 24HR Tablet (Imdur) PO SCH (06:39)
[2017-12-14 06:40] LABS: Potassium 3.4 meq/L (3.5-5.1)
[2017-12-14 06:43] LABS: Baso % (Auto) 0.2 % (0.0-2.0); Eos # (Auto) 0.3 th/mm3 (0.0-0.4); Eos % (Auto) 4.2 % (0.0-4.0); Hematocrit 36.4 % (39.0-51.0); Hemoglobin 12.5 gm/dL (13.0-17.0); Lymph # (Auto) 0.9 th/mm3 (1.0-4.8); Lymph % (Auto) 14.3 % (9.0-44.0); Mean Corpuscular HGB Conc 34.3 % (32.0-36.0); Mean Corpuscular Hemoglobin 36.5 pg (27.0-34.0); Mean Corpuscular Volume 106.2 fL (80.0-100.0); Mean Platelet Volume 8.4 fL (7.0-11.0); Mono # (Auto) 0.5 th/mm3 (0.0-0.9); Mono % (Auto) 7.6 % (0.0-8.0); Neut # (Auto) 4.4 th/mm3 (1.8-7.7); Neut % (Auto) 73.7 % (16.0-70.0); Platelet Count 94 th/mm3 (150-450); Red Blood Count 3.43 mil/mm3 (4.50-5.90); Red Cell Distribution Width 14.2 % (11.6-17.2); White Blood Count 6.1 th/mm3 (4.0-11.0)
[2017-12-14 06:45] LABS: Calcium 9.3 mg/dL (8.5-10.1); Carbon Dioxide 30.8 meq/L (21.0-32.0)
[2017-12-14] MEDS: Insulin NovoLOG Aspart Correctional Sugar Inj SQ SCH ×4 (08:39→21:31)
[2017-12-14] MEDS ORDERED: Senna/Docusate Sodium 8.6/50 MG Tablet PO PRN (09:28)
[2017-12-14] MEDS: Metoprolol Tartrate 25 MG Tablet PO SCH ×2 (09:37→21:36)
[2017-12-14] MEDS: Furosemide 40 MG Tablet PO SCH (09:40)
[2017-12-14] MEDS: hydroCHLOROthiazide 25 MG Tablet PO SCH (09:41)
[2017-12-14] MEDS: Lisinopril 10 MG Tablet PO SCH ×2 (09:41→21:39)
[2017-12-14] MEDS: Ranolazine 500 MG 12HR ER Tablet PO SCH ×2 (09:44→21:36)
[2017-12-14] MEDS: Finasteride 5 MG Tablet PO SCH (09:44)
[2017-12-14] MEDS: Brimonidine 0.15% Opth Drops 5 ML Bottle EACH EYE SCH ×3 (09:46→17:32)
[2017-12-14] MEDS: Allopurinol 100 MG Tablet PO SCH (09:55)
--- NOTE | 2017-12-14 12:19 | P.PN ---
Subjective Interval history: 87-year-old male with generalized weakness. Workup thus far is negative for cardiac causes, negative for stroke. He still feels weak. Only finding so far is urinary tract infection and he has had a single dose of Rocephin. Physical Exam Vital signs: Vital Signs 12/13/17 15:19 12/13/17 20:00 12/13/17 20:30 Temperature 96.8 F L 96.2 F L Pulse Rate 75 66 Respiratory Rate 20 18 Blood Pressure 134/78 147/75 H Pulse Oximetry 95 95 95 12/14/17 00:00 12/14/17 04:00 12/14/17 07:36 Temperature 96.3 F L 96.1 F L Pulse Rate 65 66 Respiratory Rate 18 18 Blood Pressure 127/71 159/82 H Pulse Oximetry 94 L 94 L 94 L 12/14/17 07:43 12/14/17 12:00 Temperature 97.2 F L 97.2 F L Pulse Rate 85 88 Respiratory Rate 18 18 Blood Pressure 129/86 112/76 Pulse Oximetry 96 95 Intake & Output 12/13/17 12/14/17 12/14/17 18:59 06:59 18:59 Intake Total 0 / 0 100 / 100 Output Total 950 / 950 100 / 100 Balance 0 / 0 -850 / -850 -100 / -100 Weight 83.3 kg Intake: IV 100 / 100 Rocephin Inj 1,000 MG In NS Inj 100 / 100 100 ML @ 200 mls/hr IV.SIG Q24H JASBIR Rx#:[id number] Oral Supplement 0 / 0 Output: Urine 950 / 950 100 / 100 Other: Post Void Residual 1,900 # Voids 1 # Bowel Movements 0 Narrative: GENERAL: Generally weak, but alert and oriented 3, no distress SKIN: Warm and dry. HEAD: Normocephalic. EYES: No scleral icterus. No injection or drainage. NECK: Supple, trachea midline. No JVD or lymphadenopathy. CARDIOVASCULAR: Irregularly irregular, rate controlled, without murmurs, gallops , or rubs. RESPIRATORY: Breath sounds equal bilaterally. No accessory muscle use. GASTROINTESTINAL: Abdomen soft, non-tender, nondistended. MUSCULOSKELETAL: No cyanosis, trace edema in ankles BACK: Nontender without obvious deformity. No CVA tenderness. Results - Labs CBC & Chem 7: 12/14/17 05:10 12/14/17 05:10 Laboratory Results - last 24 hr 12/13/17 12/13/17 12/13/17 08:10 13:22 13:22 CBC w Diff WBC RBC Hgb Hct MCV MCH MCHC RDW Plt Count MPV Neut % (Auto) Lymph % (Auto) [place] % (Auto) Eos % (Auto) Baso % (Auto) Neut # (Auto) Lymph # (Auto) [place] # (Auto) Eos # (Auto) Baso # (Auto) WBC Differential Diff Scan Differential Comment Sodium Potassium Chloride Carbon Dioxide Anion Gap BUN Creatinine Estimated GFR POC Glucose Random Glucose Calcium Total Creatine Kinase 59 Troponin I 0.10 H Triglycerides 106 Cholesterol 113 L LDL Cholesterol, Calc 44 HDL Cholesterol 48.3 Cholesterol/HDL Ratio 2.33 12/13/17 12/13/17 12/14/17 16:58 21:04 05:10 CBC w Diff Slide review pending WBC 6.1 RBC 3.43 L Hgb 12.5 L Hct 36.4 L MCV 106.2 H MCH 36.5 H MCHC 34.3 RDW 14.2 Plt Count 94 L MPV 8.4 Neut % (Auto) 73.7 H Lymph % (Auto) 14.3 Lincoln % (Auto) 7.6 Eos % (Auto) 4.2 H Baso % (Auto) 0.2 Neut # (Auto) 4.4 Lymph # (Auto) 0.9 L Lincoln # (Auto) 0.5 Eos # (Auto) 0.3 Baso # (Auto) 0.0 WBC Differential . Diff Scan Auto diff confirmed Differential Comment . Sodium Potassium Chloride Carbon Dioxide Anion Gap BUN Creatinine Estimated GFR POC Glucose 118 H 139 H Random Glucose Calcium Total Creatine Kinase Troponin I Triglycerides Cholesterol LDL Cholesterol, Calc HDL Cholesterol Cholesterol/HDL Ratio 12/14/17 12/14/17 12/14/17 05:10 07:15 11:47 CBC w Diff WBC RBC Hgb Hct MCV MCH MCHC RDW Plt Count MPV Neut % (Auto) Lymph % (Auto) Lincoln % (Auto) Eos % (Auto) Baso % (Auto) Neut # (Auto) Lymph # (Auto) Lincoln # (Auto) Eos # (Auto) Baso # (Auto) WBC Differential Diff Scan Differential Comment Sodium 140 Potassium 3.4 L Chloride 102 Carbon Dioxide 30.8 Anion Gap 7 BUN 41 H Creatinine 1.90 H Estimated GFR 34 L POC Glucose 132 H 229 H Random Glucose 126 H Calcium 9.3 Total Creatine Kinase Troponin I Triglycerides Cholesterol LDL Cholesterol, Calc HDL Cholesterol Cholesterol/HDL Ratio Microbiology 12/12/17 23:55 Clean Catch Urine Urine Culture - Preliminary No growth in 24 hours Assessment and Plan - Plan Generalized weakness, acute onset CT & MRI of brain are both negative for any acute changes Workup is negative for stroke TSH within normal limits, electrolytes remained stable PT consulted to evaluate balance Atrial fibrillation Chronic diagnosis, reviewed by Dr. Pierce who noted no changes to chronic state Appreciate cardiology consult Urinary tract infection Incidental finding, asymptomatic, likely the explanation for his generalized weakness Continue Rocephin 1 g IV daily h/o Diabetes Type 2 Sliding scale insulin coverage with accuchecks Diabetic Diet h/o CKD Chronic, stable h/o Hypertension Stable on PO meds Continue PO meds DVT Prophylaxis Warfarin
--- NOTE | 2017-12-14 14:59 | ECG ---
Date Performed: 12/13/2017 Time Performed: 13:31:25 PTAGE: 87 years EKG: IRREGULAR RHYTHM WITH AN INTRAVENTRICULAR CONDUCTION DELAY SIGNIFICANT BASELINE ARTIFACT PE RCLUDING ANY FURTHER INTERPRETATION ABNORMAL ECG PREVIOUS TRACING : 12/12/2017 23.14 When compared to the prior EKG, likely no significant caty salvador DOCTOR: Althea Carrington Interpretating Date/Time 12/14/2017 14:57:33
--- NOTE | 2017-12-14 16:03 | P.DCO ---
- Physical Therapy Order: Evaluate and treat, Improve ambulation, Strength and gait training - Home Health Nursing Order: Medical education, Signs/symptoms of disease process, Nursing assessment with vital signs - Certification I have seen patient Josias Coyle on 12/14/17. My clinical findings support the need for the requested home health care services because: Deconditioned with increased weakness I certify that my clinical findings support that this patient is homebound because: Unsteady gait/balance
[2017-12-15] MEDS: Isosorbide Mononitrate 60 MG ER 24HR Tablet (Imdur) PO SCH (06:09)
[2017-12-15] MEDS: Insulin NovoLOG Aspart Correctional Sugar Inj SQ SCH ×4 (10:15→22:46)
[2017-12-15] MEDS: Brimonidine 0.15% Opth Drops 5 ML Bottle EACH EYE SCH ×3 (10:16→20:06)
[2017-12-15] MEDS: Lisinopril 10 MG Tablet PO SCH ×2 (10:16→22:45)
[2017-12-15] MEDS: Metoprolol Tartrate 25 MG Tablet PO SCH ×2 (10:16→22:45)
[2017-12-15] MEDS: hydroCHLOROthiazide 25 MG Tablet PO SCH (10:17)
[2017-12-15] MEDS: Furosemide 40 MG Tablet PO SCH (10:17)
[2017-12-15] MEDS: Ranolazine 500 MG 12HR ER Tablet PO SCH ×2 (10:17→22:45)
[2017-12-15] MEDS: Allopurinol 100 MG Tablet PO SCH (10:17)
[2017-12-15] MEDS: Finasteride 5 MG Tablet PO SCH (10:17)
--- NOTE | 2017-12-15 10:23 | P.PN ---
Subjective Interval history: Patient states he is beginning to regain his energy back, he has a good appetite , able to walk. Physical therapy assessed that he will be acceptable to go back to his [facility] with home health care PT. He states that his facility has no nurse on the weekend. Physical Exam Vital signs: Vital Signs 12/14/17 12:00 12/14/17 16:00 12/14/17 19:51 Temperature 97.2 F L 96.4 F L Pulse Rate 88 79 Respiratory Rate 18 18 Blood Pressure 112/76 126/82 Pulse Oximetry 95 95 94 L 12/14/17 20:07 12/14/17 23:41 12/15/17 00:00 Temperature 97.0 F L 97.1 F L Pulse Rate 81 71 64 Respiratory Rate 18 12 18 Blood Pressure 116/62 122/77 Pulse Oximetry 92 L 96 12/15/17 04:00 12/15/17 08:00 Temperature 96.6 F L 98.3 F Pulse Rate 64 98 H Respiratory Rate 18 21 Blood Pressure 150/74 H 143/71 H Pulse Oximetry 93 L 95 Intake & Output 12/14/17 12/15/17 12/15/17 18:59 06:59 18:59 Intake Total 740 / 740 400 / 400 240 / 240 Output Total 100 / 100 800 / 800 200 / 200 Balance 640 / 640 -400 / -400 40 / 40 Weight 83.3 kg Intake: IV 100 / 100 Rocephin Inj 1,000 MG In NS Inj 100 / 100 100 ML @ 200 mls/hr IV.SIG Q24H JASBIR Rx#:[id number] Oral 740 / 740 300 / 300 240 / 240 Output: Urine 100 / 100 800 / 800 200 / 200 Other: # Voids 5 2 Date of Last Bowel Movement 12/14/17 # Bowel Movements 2 1 Weight On Admission 83.3 kg Narrative: GENERAL: Generally weak, but alert and oriented 3, no distress SKIN: Warm and dry. HEAD: Normocephalic. EYES: No scleral icterus. No injection or drainage. NECK: Supple, trachea midline. No JVD or lymphadenopathy. CARDIOVASCULAR: Irregularly irregular, rate controlled, without murmurs, gallops , or rubs. RESPIRATORY: Breath sounds equal bilaterally. No accessory muscle use. GASTROINTESTINAL: Abdomen soft, non-tender, nondistended. MUSCULOSKELETAL: No cyanosis, trace edema in ankles BACK: Nontender without obvious deformity. No CVA tenderness. Results - Labs CBC & Chem 7: 12/14/17 05:10 12/14/17 05:10 Laboratory Results - last 24 hr 12/14/17 12/14/17 12/14/17 11:47 16:53 21:26 POC Glucose 229 H 97 134 H Microbiology 12/12/17 23:55 Clean Catch Urine Urine Culture - Preliminary No growth in 24 hours Assessment and Plan - Assessment (1) Unsteady gait Code(s): R26.81 - Unsteadiness on feet Status: Acute (2) Atrial fibrillation Code(s): I48.91 - Unspecified atrial fibrillation Status: Acute (3) Chronic kidney disease Code(s): N18.9 - Chronic kidney disease, unspecified Status: Acute (4) Diabetes Code(s): E11.9 - Type 2 diabetes mellitus without complications Status: Acute - Plan Generalized weakness, acute onset CT & MRI of brain are both negative for any acute changes, ruling out stroke TSH within normal limits, electrolytes remained stable Generalized weakness is likely secondary to urinary tract infection, slowly improving Appreciate physical therapy consult Atrial fibrillation Chronic diagnosis, reviewed by Dr. Pierce who noted no new changes Heart rate above 100 bpm this morning prior to a.m. meds, will monitor Urinary tract infection Incidental finding, asymptomatic, likely the explanation for his generalized weakness Continue Rocephin 1 g IV daily Follow cultures for sensitivities h/o Diabetes Type 2 Sliding scale insulin coverage with accuchecks Diabetic Diet h/o CKD Chronic, stable h/o Hypertension Stable on PO meds Continue PO meds DVT Prophylaxis Warfarin Discharge planning Likely discharge tomorrow once urine sensitivities are returned
[2017-12-16] MEDS: Metoprolol Tartrate 25 MG Tablet PO SCH (08:01)
[2017-12-16] MEDS: Brimonidine 0.15% Opth Drops 5 ML Bottle EACH EYE SCH (08:01)
[2017-12-16] MEDS: Isosorbide Mononitrate 60 MG ER 24HR Tablet (Imdur) PO SCH (08:02)
[2017-12-16] MEDS: Allopurinol 100 MG Tablet PO SCH (08:02)
[2017-12-16] MEDS: Finasteride 5 MG Tablet PO SCH (08:02)
[2017-12-16] MEDS: Ranolazine 500 MG 12HR ER Tablet PO SCH (08:02)
[2017-12-16] MEDS: hydroCHLOROthiazide 25 MG Tablet PO SCH (08:02)
[2017-12-16] MEDS: Lisinopril 10 MG Tablet PO SCH (08:02)
[2017-12-16] MEDS: Furosemide 40 MG Tablet PO SCH (08:03)
[2017-12-16] MEDS: Insulin NovoLOG Aspart Correctional Sugar Inj SQ SCH ×2 (08:14→11:35)
[2017-12-16 08:50] VITALS: RESP 18; TEMP 97.3
--- NOTE | 2017-12-16 11:21 | P.DS ---
Date of admission: 12/13/17 01:31 Primary care physician: Edwin Scott MD Brief History from admission: 87-year-old male with history of A. fib, DVT presents to the ER following an acute onset of dizziness and weakness. He lives in an [facility] where, at 10:45 PM last night, he became acutely weak and dizzy and had to crawl on his hands and knees to the door which he opened and called for help. He denies any chest pain. He is uncertain why he felt this way. Currently he says he feels better but has not tested himself on his feet again. He denies any dizziness lying in bed. His history is somewhat broken, he cannot remember if he has atrial fibrillation though it is in his history. This may indicate some level of dementia. DS: Diagnosis - Discharge Diagnosis (1) Unsteady gait Status: Acute (2) Atrial fibrillation Status: Acute (3) Chronic kidney disease Status: Acute (4) Diabetes Status: Acute DS: Medications - Discharge Medications Prescriptions: sulfamethoxazole-trimethoprim [Bactrim DS] 1 tab PO BID 5 Days #10 tab DS: Summary Hospital Course: 87-year-old male who presented to the ER 3 days ago with generalized weakness. Stroke and cardiac involvement were ruled out. His generalized weakness was likely a result of a urinary tract infection. Cultures have grown out as mixed ludivina. He has been treated empirically during this hospitalization with Rocephin 3 doses. He remains afebrile and has regained much of his strength. I am sending him home on Bactrim DS for 5 days. Physical therapy recommended outpatient home health to assist with his strength and ambulation. He is being discharged today. - Time Spent with Patient Total time spent providing and/or coordinating discharge services: - Quality: VTE Deep Vein Thrombosis/Pulmonary Embolism Present on Admission: No Exam Vital signs: Vital Signs 12/15/17 12:00 12/15/17 16:00 12/15/17 20:00 Temperature 98.4 F 98.4 F 96.4 F L Pulse Rate 99 H 93 H 56 L Respiratory Rate 21 19 20 Blood Pressure 119/67 118/78 126/73 Pulse Oximetry 94 L 95 96 12/16/17 00:00 12/16/17 04:00 12/16/17 08:00 Temperature 96 F L 96 F L 97.3 F L Pulse Rate 74 73 80 Respiratory Rate 20 20 18 Blood Pressure 119/74 117/62 145/70 H Pulse Oximetry 94 L 91 L 95 Intake & Output 12/15/17 12/16/17 12/16/17 18:59 06:59 18:59 Intake Total 480 / 480 240 / 240 Output Total 201 / 201 500 / 500 Balance 279 / 279 -260 / -260 Weight 84.2 kg Intake: Oral 480 / 480 240 / 240 Output: Urine 200 / 200 500 / 500 Stool 1 / Other: Post Void Residual 3 # Voids 2 1 Date of Last Bowel Movement 12/14/17 12/15/17 Results Procedures completed during hospitalization: None Labs on day of discharge: Labs from last 24 hours 12/16/17 12/15/17 12/15/17 08:00 20:22 18:29 POC Glucose 126 H 153 H 242 H - Impressions ITS Impressions Head CT 12/12/17 23:11 CONCLUSION: 1. No acute findings in the brain. Age-appropriate atrophy. Chest X-Ray 12/12/17 23:12 CONCLUSION: Subsegmental basilar airspace disease. No effusion or pneumothorax. Head MRI 12/13/17 00:00 CONCLUSION: 1. 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 2. Generalized volume loss consistent with an aging brain atrophy. 3. No evidence of acute infarct, hemorrhage, mass or edema. Discharge Plan - Discharge Disposition Patient Disposition: /Home Health Service - Discharge Condition Condition: Good - Discharge Order Discharge Orders: Discharge Order (Routine); Ordered 12/16/17 Ordered By: Peterson Huggins - Physicians Team Primary Care Provider: Edwin Scott Attending Provider: Peterson Huggins Other Providers: Sheila Pierce MD
[2017-12-16 12:32] VITALS: BP 107/67; PULSE 68; O2SAT 96
== END 2017-12-16 14:08 | disposition home health service (06) ==
LOC: PHED 23:06 → PHEDA 23:06 → PH3 23:06
PROVIDERS: ADMIT Family Medicine; ATTEND Family Medicine